=== PATIENT | male | born 1970 | race American Indian/Alaskan Native ===

== ENCOUNTER 2020-10-10 02:01 | Emergency (ER) | payer SELFPAY ==
[2020-10-10 02:32] LABS: Basophils # (Auto) 0.1 K/mm3 (0.0-0.1); Basophils % (Auto) 0.9 % (0.0-1.8); Eosinophils # (Auto) 0.1 K/mm3 (0.0-0.4); Hematocrit 40.7 % (35.5-45.6); Hemoglobin 13.7 gm/dl (11.8-15.2); Lymphocytes # (Auto) 2.5 K/mm3 (1.2-5.4); Lymphocytes % (Auto) 38.1 % (13.4-35.0); Mean Corpuscular HGB Conc 34 % (32-34); Mean Corpuscular Volume 84 fl (84-94); Monocytes # (Auto) 0.4 K/mm3 (0.0-0.8); Monocytes % (Auto) 6.9 % (0.0-7.3); Platelet Count 235 K/mm3 (140-440); Red Blood Count 4.86 M/mm3 (3.65-5.03); Red Cell Distribution Width 15.5 % (13.2-15.2)
--- NOTE | 2020-10-10 02:45 | XRay Report ---
CHEST 2 VIEWS INDICATION / CLINICAL INFORMATION: Dysrhythmia. COMPARISON: None available. FINDINGS: SUPPORT DEVICES: None. HEART / MEDIASTINUM: No significant abnormality. LUNGS / PLEURA: No significant pulmonary or pleural abnormality. No pneumothorax. ADDITIONAL FINDINGS: No significant additional findings. IMPRESSION: 1. No acute findings. Signer Name: Momo Duong MD Signed: 10/10/2020 2:41 AM Workstation Name: [id number]
--- NOTE | 2020-10-10 02:54 | Emergency Department Report ---
ED Palpitations HPI - General Chief Complaint: Arrhythmia/Palpitations Stated Complaint: RAPID HEARTBEAT/BACK PAIN Time Seen by Provider: 10/10/20 02:47 Source: patient Mode of arrival: Ambulatory Limitations: No Limitations - History of Present Illness Initial Comments: Patient is a 50-year-old male who presents emergency room with complaints of palpitations and heart fluttering. Patient states his symptoms started 1 hour prior to arrival. Patient denies chest pain. Patient denies shortness of breath. Patient states the symptoms are making him anxious. Patient states he has been working out today but has not had anything to eat today. Patient states he has had a few bottles of water. Patient denies fever and chills. Patient denies cough. Patient denies recent travel. Patient denies recent international travel. Patient denies exposure to the novel coronavirus. Patient denies sick contacts. Patient denies fever and chills. Patient denies cough. Patient denies diarrhea. Patient denies coming in contact with anybody with symptoms of the novel coronavirus. Complaint: rapid heart beat, palpitations -: Sudden - Related Data Home Medications Medication Instructions Recorded Confirmed Last Taken amLODIPine [Norvasc] 5 mg PO DAILY 10/10/20 10/10/20 Unknown Previous Rx's Medication Instructions Recorded Last Taken Type Potassium Chloride [K-Dur] 20 meq PO DAILY 30 Days #30 tab 10/10/20 Unknown Rx Allergies Allergy/AdvReac Type Severity Reaction Status Date / Time No Known Allergies Allergy Unverified 10/10/20 02:06 ED Review of Systems ROS: Stated complaint: RAPID HEARTBEAT/BACK PAIN Other details as noted in HPI Constitutional: denies: chills, fever Eyes: denies: eye pain, eye discharge, vision change ENT: denies: ear pain, throat pain Respiratory: denies: cough, shortness of breath, wheezing Cardiovascular: as per HPI, palpitations. denies: chest pain Endocrine: no symptoms reported Gastrointestinal: denies: abdominal pain, nausea, diarrhea Genitourinary: denies: urgency, dysuria Musculoskeletal: denies: back pain, joint swelling, arthralgia Skin: denies: rash, lesions Neurological: denies: headache, weakness, paresthesias Psychiatric: anxiety. denies: depression Hematological/Lymphatic: denies: easy bleeding, easy bruising ED Past Medical Hx - Past Medical History Previous Medical History?: Yes Hx Hypertension: Yes - Surgical History Past Surgical History?: No - Family History Family history: no significant - Social History Smoking Status: Never Smoker Substance Use Type: None - Medications Home Medications: Home Medications Medication Instructions Recorded Confirmed Last Taken Type Potassium Chloride [K-Dur] 20 meq PO DAILY 30 Days #30 tab 10/10/20 Unknown Rx amLODIPine [Norvasc] 5 mg PO DAILY 10/10/20 10/10/20 Unknown History ED Physical Exam - General Limitations: No Limitations General appearance: alert, in no apparent distress - Head Head exam: Present: atraumatic, normocephalic - Eye Eye exam: Present: normal appearance - ENT ENT exam: Present: mucous membranes moist - Neck Neck exam: Present: normal inspection - Respiratory Respiratory exam: Present: normal lung sounds bilaterally. Absent: respiratory distress - Cardiovascular Cardiovascular Exam: Present: regular rate, normal rhythm. Absent: systolic murmur, diastolic murmur, rubs, gallop - GI/Abdominal GI/Abdominal exam: Present: soft, normal bowel sounds - Rectal Rectal exam: Present: deferred - Extremities Exam Extremities exam: Present: normal inspection - Back Exam Back exam: Present: normal inspection - Neurological Exam Neurological exam: Present: alert, oriented X3 - Psychiatric Psychiatric exam: Present: normal affect, normal mood - Skin Skin exam: Present: warm, dry, intact, normal color. Absent: rash ED Course Vital Signs 10/10/20 10/10/20 10/10/20 02:05 03:09 03:12 Temperature 98.4 F Pulse Rate 94 H 79 Respiratory 18 11 L 17 Rate Blood Pressure 151/61 Blood Pressure 125/81 [Left] O2 Sat by Pulse 97 99 98 Oximetry - Reevaluation(s) Reevaluation #1: I discussed all results and clinical findings with patient. I discussed plan of care with patient. Patient agrees with plan of care. Patient is stable for discharge. Patient will be discharged home. Patient given discharge instructions. Patient voiced understanding of discharge instructions. 10/10/20 03:25 ED Medical Decision Making - Lab Data Result diagrams: 10/10/20 02:22 10/10/20 02:22 - EKG Data -: EKG Interpreted by Me EKG shows normal: sinus rhythm, axis, intervals, QRS complexes, ST-T waves Rate: normal - Radiology Data Radiology results: report reviewed, image reviewed interpreted by me: Chest x-ray: No pneumonia, no pneumothorax, no foreign body, no osseous findings, no acute findings CHEST 2 VIEWS INDICATION / CLINICAL INFORMATION: Dysrhythmia. COMPARISON: None available. FINDINGS: SUPPORT DEVICES: None. HEART / MEDIASTINUM: No significant abnormality. LUNGS / PLEURA: No significant pulmonary or pleural abnormality. No pneumothorax. ADDITIONAL FINDINGS: No significant additional findings. IMPRESSION: 1. No acute findings. - Medical Decision Making Patient is a 44-year-old male that presents emergency room with complaints of heart palpitations and heart fluttering x1 hour prior to arrival. Patient had poor p.o. intake and poor water intake and was working out the day of his symptoms started. Patient had labs done which were essentially unremarkable except for electrolyte imbalance so hyponatremia and hypokalemia. Patient instructed to increase water and eat regularly. Patient will be given a potassium supplement. Patient instructed take a multivitamin daily. Patient had a chest x-ray and EKG done. Patient's chest x-ray was negative for acute findings. Patient's EKG was negative for acute finding had a normal ST segment and showed a normal sinus rhythm. I personally reviewed the chest x-ray and the EKG. Patient is stable for discharge. Patient discharged home. Patient will refer to a zoo veterinarian for further evaluation and treatment. . - Differential Diagnosis Palpitations, electrolyte imbalance, dehydration, fluttering Critical care attestation.: If time is entered above; I have spent that time in minutes in the direct care of this critically ill patient, excluding procedure time. ED Disposition Clinical Impression: Heart palpitations, Hypokalemia, Dehydration Disposition: DC- TO HOME OR SELFCARE Is pt being admited?: No Does the pt Need Aspirin: No Condition: Stable Instructions: Hypokalemia, Rehydration, Adult, Palpitations, [id number], Potassium Content of Foods Additional Instructions: Patient to follow-up with primary care in 2 to 3 days. Patient to follow-up with zoo veterinarian in 2 to 3 days. Patient to rest. Patient to increase water. Patient to avoid strenuous exercise or heavy lifting until cleared by zoo veterinarian. Patient to eat a heart healthy diet. Patient to eat regularly. Patient to go to his primary care within 2 to 3 days to have a potassium checked. Patient to take a multivitamin daily. Patient to take meds as directed. Patient to return to the ER if condition worsens, changes or new symptoms arise. Prescriptions: Potassium Chloride [K-Dur] 20 meq PO DAILY 30 Days #30 tab Referrals: PRIMARY CARE, [Primary Care Provider] - 2-3 Days SHAWNEE GONZALES MD [Staff Physician] - 2-3 Days RHONDA ALDRIDGE MD [Staff Physician] - 2-3 Days Time of Disposition: 03:18
[2020-10-10 02:55] LABS: Alanine Aminotransferase 11 units/L (7-56); Albumin 4.2 g/dL (3.9-5); BUN/Creatinine Ratio 10; Blood Urea Nitrogen 10 mg/dL (9-20); Calcium 9.1 mg/dL (8.4-10.2); Hemolysis Index 3
[2020-10-10 03:13] VITALS: BP 125/81
--- NOTE | 2020-10-10 11:25 | Electrocardiograph Report ---
[facility] Test Date: 2020-10-10 Test Time: 02:12:04 Pat Name: JARETH SALINAS Department: Room: Gender: M Echo Vasc Tech: : 1970 Requested By: SHONDA SANTANA III Order Number: [id number] Reading MD: Brandin Canada Measurements Intervals [place] Rate: 85 P: 48 OR: 173 QRS: 10 QRSD: 92 T: 40 QT: 357 QTc: 425 Interpretive Statements Sinus rhythm No previous ECG available for comparison Electronically Signed On 10-10-2020 8:25:04 PDT by Brandin Canada
== END 2020-10-10 03:36 | disposition home or self-care (01) ==
LOC: ED 02:01
DX: R00.2 Palpitations (principal); E86.0 Dehydration; E87.6 Hypokalemia; Z79.899 Other long term (current) drug therapy
CPT/HCPCS: 36415; 71046; 80053; 84484; 85025; 85379; 93005; 99283

== ENCOUNTER 2020-12-14 22:08 | Emergency (ER) | payer SELFPAY ==
[2020-12-14 23:38] VITALS: BP 151/75
[2020-12-14] MEDS ORDERED: ACETAMINOPHEN 325 MG TAB PO ONE (23:42)
[2020-12-15] MEDS ORDERED: LIDOCAINE VISCOUS 2% 15 ML ORAL LIQD PO ONE (00:06)
[2020-12-15] MEDS ORDERED: IBUPROFEN 600 MG TAB PO ONE (00:06)
[2020-12-15] MEDS ORDERED: dexAMETHasone 20 MG/5 ML VIAL IM ONE (00:07)
--- NOTE | 2020-12-15 02:17 | Emergency Department Report ---
ED General Adult HPI - General Chief complaint: Fever Stated complaint: EAR/THROAT PAIN/FEVER/CHILLS Source: patient Mode of arrival: Ambulatory Limitations: No Limitations - History of Present Illness Initial comments: Patient is a 50-year-old -Maur[place] male with a history of hypertension who presents to the ED with acute onset persistent , severe sore throat with dysphagia, right ear pain, diffuse body aches and pains and intermittent fever and chills for the last 2 days, worse in the last 12 hours. Patient states that the pain is worse with any swallowing of liquids or solid foods. Patient states that no one else at home is had similar symptoms. Patient denies dizziness, syncope, chest pain, shortness of breath, cough, nasal and sinus congestion, change in vision, diarrhea, abdominal pain, nausea and vomiting. MD Complaint: Sore throat, dysphagia; right ear pain, chills, fever and body aches -: Sudden, days(s) (2) Location: mouth Radiation: non-radiation Severity scale (0 -10): 7 Quality: aching, sharp, constant Consistency: constant Improves with: none Worsens with: eating Associated Symptoms: denies other symptoms, diaphoresis, fever/chills, headaches, loss of appetite, malaise, other (Severe right ear pain). denies: confusion, chest pain, cough, nausea/vomiting, rash, seizure, shortness of br eath, syncope, weakness Treatments Prior to Arrival: none - Related Data Home Medications Medication Instructions Recorded Confirmed Last Taken amLODIPine [Norvasc] 5 mg PO DAILY 10/10/20 10/10/20 Unknown Previous Rx's Medication Instructions Recorded Last Taken Type Potassium Chloride [K-Dur] 20 meq PO DAILY 30 Days #30 tab 10/10/20 Unknown Rx Azithromycin [Zithromax Z-EDIS] 250 mg PO DAILY #6 tablet 12/15/20 Unknown Rx Ibuprofen [Motrin] 800 mg PO Q8HR PRN #30 tablet 12/15/20 Unknown Rx Lidocaine Viscous 2% 10 ml PO Q6H PRN #120 ml 12/15/20 Unknown Rx Allergies Allergy/AdvReac Type Severity Reaction Status Date / Time No Known Allergies Allergy Unverified 10/10/20 02:06 ED Review of Systems ROS: Stated complaint: EAR/THROAT PAIN/FEVER/CHILLS Other details as noted in HPI Constitutional: chills, fever, malaise, weakness Eyes: denies: eye pain, eye discharge, vision change ENT: ear pain (Right ear pain), throat pain (Sore throat with dysphagia). denies: congestion Respiratory: denies: cough, shortness of breath, wheezing Cardiovascular: denies: chest pain, palpitations Endocrine: no symptoms reported Gastrointestinal: denies: abdominal pain, nausea, vomiting, diarrhea Genitourinary: denies: urgency, dysuria Musculoskeletal: denies: back pain, joint swelling, arthralgia Skin: denies: rash, lesions Neurological: denies: headache, weakness, paresthesias Psychiatric: denies: anxiety, depression Hematological/Lymphatic: denies: easy bleeding, easy bruising ED Past Medical Hx - Past Medical History Previous Medical History?: Yes Hx Hypertension: Yes - Surgical History Past Surgical History?: No - Social History Smoking Status: Never Smoker Substance Use Type: None - Medications Home Medications: Home Medications Medication Instructions Recorded Confirmed Last Taken Type Potassium Chloride [K-Dur] 20 meq PO DAILY 30 Days #30 tab 10/10/20 Unknown Rx amLODIPine [Norvasc] 5 mg PO DAILY 10/10/20 10/10/20 Unknown History Azithromycin [Zithromax Z-EDIS] 250 mg PO DAILY #6 tablet 12/15/20 Unknown Rx Ibuprofen [Motrin] 800 mg PO Q8HR PRN #30 tablet 12/15/20 Unknown Rx Lidocaine Viscous 2% 10 ml PO Q6H PRN #120 ml 12/15/20 Unknown Rx ED Physical Exam - General Limitations: No Limitations General appearance: alert, in no apparent distress, other (Febrile) - Head Head exam: Present: atraumatic, normocephalic, normal inspection - Eye Eye exam: Present: normal appearance, PERRL, EOMI Pupils: Present: normal accommodation - ENT ENT exam: Present: mucous membranes moist, TM's normal bilaterally, normal external ear exam, other (Grossly erythematous oropharynx and tonsils, mild white exudates; uvula midline and no sign of peritonsillar abscess) - Neck Neck exam: Present: normal inspection, full ROM, lymphadenopathy (Palpable anterior cervical lymphadenopathy) - Respiratory Respiratory exam: Present: normal lung sounds bilaterally. Absent: respiratory distress, wheezes, rales, chest wall tenderness, accessory muscle use, decreased breath sounds, prolonged expiratory - Cardiovascular Cardiovascular Exam: Present: regular rate, normal rhythm, normal heart sounds. Absent: systolic murmur, diastolic murmur, rubs, gallop - GI/Abdominal GI/Abdominal exam: Present: soft, normal bowel sounds. Absent: tenderness, guarding, rebound, hyperactive bowel sounds - Extremities Exam Extremities exam: Present: normal inspection, full ROM, normal capillary refill - Back Exam Back exam: Present: normal inspection, full ROM. Absent: tenderness, CVA tenderness (R), CVA tenderness (L), muscle spasm, paraspinal tenderness - Neurological Exam Neurological exam: Present: alert, oriented X3, CN II-XII intact, normal gait, reflexes normal - Psychiatric Psychiatric exam: Present: normal affect, normal mood - Skin Skin exam: Present: warm, dry, intact, normal color. Absent: rash ED Course Vital Signs 12/14/20 12/15/20 12/15/20 23:36 01:01 02:05 Temperature 102.9 F H 99.0 F Pulse Rate 90 85 Respiratory 18 20 20 Rate Blood Pressure 151/75 O2 Sat by Pulse 97 98 Oximetry ED Medical Decision Making - Medical Decision Making This is a 50-year-old -[place]aur[place] male with a history of hypertension who presents to the ED with acute onset persistent , severe sore throat with dysphagia, diffuse body aches and pains and intermittent fever and chills for the last 2 days, worse in the last 12 hours. Patient states that the pain is worse with any swallowing of liquids or solid foods. Patient states that no one else at home is had similar symptoms. In the ED, patient is alert and oriented x3 and is not in distress but febrile in triage. Patient was treated for fever and pain in the ED and observed. On reevaluation, patient fever resolved, patient's pain also resolved with medications. Based on patient's history and physical exam findings, the patient symptoms are likely due to bacterial pharyngitis or tonsillitis suspected to be streptococcal pharyngitis and tonsillitis. Patient was therefore discharged home on pain medications and antibiotics and was advised to drink plenty of fluids and follow-up with the primary care physician in 5 to 7 days for reevaluation. Patient was advised return to the ED immediately if symptoms get worse. - Differential Diagnosis Streptococcal pharyngitis; bacterial tonsillitis; viral pharyngitis Critical care attestation.: If time is entered above; I have spent that time in minutes in the direct care of this critically ill patient, excluding procedure time. ED Disposition Clinical Impression: Acute bacterial pharyngitis, Acute bacterial tonsillitis, Fever and chills Disposition: TO HOME OR SELFCARE Is pt being admited?: No Does the pt Need Aspirin: No Condition: Stable Instructions: Antibiotic Medicine, Adult, [id number], Tonsillitis, Eqon-be-Uwes, Pharyngitis, [id number] Additional Instructions: Your symptoms are likely due to bacterial pharyngitis or tonsillitis based on the physical exam and history. Therefore take medication with food, drink plenty of fluids and follow-up with your primary care physician in 5 to 7 days for reevaluation. Return to the ED immediately if symptoms get worse. Prescriptions: Lidocaine Viscous 2% 10 ml PO Q6H PRN #120 ml PRN Reason: Sore Throat Ibuprofen [Motrin] 800 mg PO Q8HR PRN #30 tablet PRN Reason: Pain , Severe (7-10) Azithromycin [Zithromax Z-EDIS] 250 mg PO DAILY #6 tablet Referrals: [facility] [Provider Group] - 7-10 days Forms: Work/School Release Form(ED) Time of Disposition: 02:07 Print Language: ARABIC
== END 2020-12-15 02:35 | disposition home or self-care (01) ==
LOC: ED 22:08
DX: J03.80 Acute tonsillitis due to other specified organisms (principal); B96.89 Other specified bacterial agents as the cause of diseases classified elsewhere; I10 Essential (primary) hypertension; Z79.899 Other long term (current) drug therapy
CPT/HCPCS: 96372; 99282; J1100

== ENCOUNTER 2021-03-14 09:54 | Emergency (ER) | payer SELFPAY ==
[2021-03-14 10:12] VITALS: BP 161/98
== END 2021-03-14 10:15 | disposition left against medical advice (07) ==
LOC: ED 09:54
DX: I10 Essential (primary) hypertension (principal); Z53.21 Procedure and treatment not carried out due to patient leaving prior to being seen by health care provider

== ENCOUNTER 2021-03-15 09:31 | Emergency (ER) | payer SELFPAY ==
[2021-03-15 09:52] VITALS: BP 130/91
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
== END 2021-03-15 10:38 | disposition home or self-care (01) ==
LOC: ED 09:31
DX: I10 Essential (primary) hypertension (principal); Z79.899 Other long term (current) drug therapy
CPT/HCPCS: 99281

== ENCOUNTER 2021-08-03 03:58 | Emergency (ER) | payer SELFPAY ==
--- NOTE | 2021-08-03 06:25 | Emergency Department Report ---
ED Extremity Problem HPI - General Chief complaint: Back Pain/Injury Stated complaint: LEFT ARM AND BACK PAIN Time Seen by Provider: 08/03/21 06:10 Source: patient Mode of arrival: Ambulatory Limitations: No Limitations - History of Present Illness Initial comments: 51-year-old -[place]ir[place] male with a past medical history of hypertension presents to the ER today with complaints of pain to his left shoulder. Patient states that the pain started about 2 hours ago. He states that he was sitting down on the couch relaxing, when the pain started. He denies any particular trauma or strenuous activity but he states that he was leaning on that arm prior to the onset of the pain. He denies any associated chest pain, shortness of breath, abdominal pain, back pain, shortness of breath, nausea, vomiting, lower extremity swelling, calf pain or any additional symptoms. Patient was concerned that the pain could be related to his heart and so came to the ER to get checked. He denies any prior history of coronary artery disease, lung disease, history of PE or DVT. He states that his mom had a PE in the past, but otherwise no family history of heart disease. He does not smoke. He denies any illicit drug use nor alcohol abuse. MD Complaint: joint paint -: hour(s) (2) Severity scale (0 -10): 6 - Related Data Home Medications Medication Instructions Recorded Confirmed Last Taken amLODIPine [Norvasc] 5 mg PO DAILY 10/10/20 10/10/20 Unknown Previous Rx's Medication Instructions Recorded Last Taken Type Potassium Chloride [K-Dur] 20 meq PO DAILY 30 Days #30 tab 10/10/20 Unknown Rx Azithromycin [Zithromax Z-EDIS] 250 mg PO DAILY #6 tablet 12/15/20 Unknown Rx Ibuprofen [Motrin] 800 mg PO Q8HR PRN #30 tablet 12/15/20 Unknown Rx Lidocaine Viscous 2% 10 ml PO Q6H PRN #120 ml 12/15/20 Unknown Rx Allergies Allergy/AdvReac Type Severity Reaction Status Date / Time No Known Allergies Allergy Unverified 10/10/20 02:06 ED Review of Systems ROS: Stated complaint: LEFT ARM AND BACK PAIN Other details as noted in HPI ED Past Medical Hx - Past Medical History Hx Hypertension: Yes - Social History Smoking Status: Never Smoker Substance Use Type: None - Medications Home Medications: Home Medications Medication Instructions Recorded Confirmed Last Taken Type Potassium Chloride [K-Dur] 20 meq PO DAILY 30 Days #30 tab 10/10/20 Unknown Rx amLODIPine [Norvasc] 5 mg PO DAILY 10/10/20 10/10/20 Unknown History Azithromycin [Zithromax Z-EDIS] 250 mg PO DAILY #6 tablet 12/15/20 Unknown Rx Ibuprofen [Motrin] 800 mg PO Q8HR PRN #30 tablet 12/15/20 Unknown Rx Lidocaine Viscous 2% 10 ml PO Q6H PRN #120 ml 12/15/20 Unknown Rx ED Physical Exam - General Limitations: No Limitations ED Course Vital Signs 08/03/21 08/03/21 04:00 06:42 Temperature 98.9 F 98.7 F Pulse Rate 80 71 Respiratory 18 17 Rate Blood Pressure 157/101 104/53 [Right] O2 Sat by Pulse 96 96 Oximetry ED Medical Decision Making - EKG Data EKG shows normal: sinus rhythm Rate: normal (70) - EKG Data Interpretation: normal EKG - Medical Decision Making 51-year-old -[place] male with a past medical history of hypertension presents to the ER today with complaints of pain to his left shoulder. Patient states that the pain started about 2 hours ago. He states that he was sitting down on the couch relaxing, when the pain started. He denies any particular trauma or strenuous activity but he states that he was leaning on that arm prior to the onset of the pain. He denies any associated chest pain, shortness of breath, abdominal pain, back pain, shortness of breath, nausea, vomiting, lower extremity swelling, calf pain or any additional symptoms. Patient was concerned that the pain could be related to his heart and so came to the ER to get checked. He denies any prior history of coronary artery disease, lung disease, history of PE or DVT. He states that his mom had a PE in the past, but otherwise no family history of heart disease. He does not smoke. He denies any illicit drug use nor alcohol abuse. Patient EKG is completely normal. Patient main area of pain is in his left shoulder he has reproducible tenderness to the proximal aspect of the left shoulder on exam. He also has some pain with range of motion. Left upper extremity neurovascular intact. he denies any chest pain, shortness of breath, nausea, vomiting or abdominal pain. Patient is nontoxic or ill-appearing. He is not any significant distress. He is neurologically intact with a normal gait. Suspect his pain is mostly musculoskeletal in nature. There is no indication for x-ray since he has suffered no trauma. At this time I do not suspect that his pain is related to unstable angina, PE, DVT, TIA/CVA, or any other acute emergent conditions warranting any additional testing at this time. Reassured patient that this is not likely related to her IL or unstable angina. Discussed suspected diagnosis with patient. He can take Tylenol and ibuprofen for pain. His blood pressure was noted to be elevated, but he had not taken his morning blood pressure medications. Patient expressed understanding of all instructions and agree with plan. Patient stable at time of discharge Critical care attestation.: If time is entered above; I have spent that time in minutes in the direct care of this critically ill patient, excluding procedure time. ED Disposition Clinical Impression: Left shoulder pain Disposition: 01 HOME / SELF CARE / HOMELESS Is pt being admited?: No Does the pt Need Aspirin: No Condition: Stable Instructions: Shoulder Pain, [id number] Additional Instructions: You can take Tylenol and or ibuprofen as needed to help with the pain. If your shoulder pain persist I recommend follow-up with edi specialist. If you do not have an edi specialist will be provided to you on your discharge instructions. Take your blood pressure medication as scheduled this morning when you get home. Return to the ER if your symptoms worsens or changes in any way Referrals: PRIMARY CAREMD [Primary Care Provider] - 3-5 Days Forms: Work/School Release Form(ED) Time of Disposition: 06:24
[2021-08-03 06:43] VITALS: BP 104/53
--- NOTE | 2021-08-05 09:20 | Electrocardiograph Report ---
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
== END 2021-08-03 06:41 | disposition home or self-care (01) ==
LOC: ED 03:58
DX: M25.512 Pain in left shoulder (principal); I10 Essential (primary) hypertension
CPT/HCPCS: 93005; 99282

== ENCOUNTER 2021-08-19 10:44 | Emergency (ER) | payer SELFPAY ==
[2021-08-19] MEDS ORDERED: cloNIDine 0.2 MG TAB PO ONE (11:30)
--- NOTE | 2021-08-19 11:58 | Cat Scan Report ---
CT head/brain wo con INDICATION / CLINICAL INFORMATION: 51 years Male; Hypertension, headache. TECHNIQUE: Routine CT head without contrast. All CT scans at this location are performed using CT dos e reduction for ALARA by means of automated exposure control. COMPARISON: None. FINDINGS: BRAIN / INTRACRANIAL CONTENTS: No acute hemorrhage, mass effect, midline shift, hydrocephalus, or acu te, large territorial infarct. No signs of significant atrophy or chronic infarct. No significant whi te matter abnormality seen. CRANIOCERVICAL JUNCTION: No significant abnormality. ORBITS: No significant abnormality of visualized orbits. SINUSES / MASTOIDS: Mucous retention cyst/polyp is seen in the right maxillary antrum. Partial opacif ication of the mastoid seen. No coalescence of air cells appreciated. ADDITIONAL FINDINGS: None. IMPRESSION: 1. No focal mass, hemorrhage, hydrocephalus, or acute, large territorial infarct. Signer Name: Marcell Coto MD, III Signed: 08/19/2021 11:53 AM Workstation Name: [id number]
--- NOTE | 2021-08-19 12:10 | Emergency Department Report ---
HPI - General Chief Complaint: High BP Time Seen by Provider: 08/19/21 11:26 - HPI HPI: Room 30 Patient is a 51-year-old male present with a chief complaint of headache. The patient states he went to sleep last night in his usual [facility] when he awakened this morning he had a slight occipital headache. The patient states over the course of the day the pain worsened. Patient denies any recent trauma. Patient denies history of fever. Patient states he has been compliant with his blood pressure medication which includes lisinopril and amlodipine ED Past Medical Hx - Past Medical History Hx Hypertension: Yes - Surgical History Past Surgical History?: No - Family History Family history: no significant - Social History Smoking Status: Never Smoker Substance Use Type: None (Denies illicit drug use) - Medications Home Medications: Home Medications Medication Instructions Recorded Confirmed Last Taken Type Potassium Chloride [K-Dur] 20 meq PO DAILY 30 Days #30 tab 10/10/20 Unknown Rx amLODIPine [Norvasc] 5 mg PO DAILY 10/10/20 10/10/20 Unknown History Azithromycin [Zithromax Z-EDIS] 250 mg PO DAILY #6 tablet 12/15/20 Unknown Rx Ibuprofen [Motrin] 800 mg PO Q8HR PRN #30 tablet 12/15/20 Unknown Rx Lidocaine Viscous 2% 10 ml PO Q6H PRN #120 ml 12/15/20 Unknown Rx ED Review of Systems ROS: Stated complaint: BP 180/110,IN PAIN Other details as noted in HPI Constitutional: no symptoms reported Eyes: denies: eye pain ENT: ear pain. denies: throat pain Respiratory: no symptoms reported Cardiovascular: denies: chest pain Endocrine: no symptoms reported Gastrointestinal: denies: abdominal pain Musculoskeletal: arthralgia Neurological: headache Physical Exam - Physical Exam Vital Signs: Vital Signs 08/19/21 10:48 Temperature 98.9 F Pulse Rate 71 Respiratory 20 Rate Blood Pressure 185/104 [Left] O2 Sat by Pulse 100 Oximetry Vital Signs 08/19/21 08/19/21 10:48 13:40 Temperature 98.9 F 98.1 F Pulse Rate 71 73 Respiratory 20 16 Rate Blood Pressure 185/104 123/78 [Left] O2 Sat by Pulse 100 99 Oximetry Physical Exam: GENERAL: The patient is well-developed well-nourished male sitting in chair not appearing to be in acute distress. [] HEENT: Normocephalic. Atraumatic. Extraocular motions are intact. Right TM obscured by cerumen NECK: Supple. Trachea midline CHEST/LUNGS: Clear to auscultation. There is no respiratory distress noted. HEART/CARDIOVASCULAR: Regular. There is no tachycardia. There is no gallop rub or murmur. ABDOMEN: Abdomen is soft, nontender. Patient has normal bowel sounds. There is no abdominal distention. SKIN: There is no rash. There is no edema. There is no diaphoresis. NEURO: The patient is awake, alert, and oriented. The patient is cooperative. The patient has no focal neurologic deficits. The patient has normal speech. Cranial nerves II through XII grossly intact. GCS 15. Patient able to hold either upper extremity at 45 degree angle for 10-second count without drift. Patient able to hold either lower extremity at 30 degree angle for 5-second count without drift. 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 NIHSS=0 MUSCULOSKELETAL:There is no evidence of acute injury. ED Course Vital Signs 08/19/21 10:48 Temperature 98.9 F Pulse Rate 71 Respiratory 20 Rate Blood Pressure 185/104 [Left] O2 Sat by Pulse 100 Oximetry ED Medical Decision Making - Radiology Data Radiology results: report reviewed (CT head), image reviewed (CT head) Patient: JARETH SALINAS MR#: [id number] : 1970 Acct:[id number] Age/Sex: 51 / M ADM Date: 08/19/21 Loc: ED Attending Dr: Ordering Physician: MALOU NINA MD Date of Service: 08/19/21 Procedure(s): CT head/brain wo con Accession Number(s): [id number] cc: MALOU NINA MD CT head/brain wo con INDICATION / CLINICAL INFORMATION: 51 years Male; Hypertension, hea dache. TECHNIQUE: Routine CT head without contrast. All CT scans at this location are performed using CT dose reduction for ALARA by means of automated exposure control. COMPARISON: None. FINDINGS: BRAIN / INTRACRANIAL CONTENTS: No acute hemorrhage, mass effect, midline shift, hydrocephalus, or acute, large territorial infarct. No signs of significant atrophy or chronic infarct. No significant white matter abnormality seen. CRANIOCERVICAL JUNCTION: No significant abnormality. ORBITS: No significant abnormality of visualized orbits. SINUSES / MASTOIDS: Mucous retention cyst/polyp is seen in the right maxillary antrum. Partial opacification of the mastoid seen. No coalescence of air cells appreciated. ADDITIONAL FINDINGS: None. IMPRESSION: 1. No focal mass, hemorrhage, hydrocephalus, or acute, large territorial infarct. Signer Name: Marcell Coto MD, III Signed: 08/19/2021 11:53 AM Workstation Name: [id number] Transcribed By: HR Dictated By: Marcell Coto MD Electronically Authent icated By: Marcell Coto MD Signed Date/Time: 08/19/21 1153 DD/ 1151 TD/TT: Print Cancel - Differential Diagnosis Hypertensive urgency, mastoiditis Critical care attestation.: If time is entered above; I have spent that time in minutes in the direct care of this critically ill patient, excluding procedure time. ED Disposition Clinical Impression: Uncontrolled hypertension, Headache Disposition: HOME / SELF CARE / HOMELESS Is pt being admited?: No Does the pt Need Aspirin: No Condition: Stable Instructions: Hypertension (ED), Hypertension, Adult, [id number] Additional Instructions: Return to the emergency department should you develop worsening symptoms, inability to tolerate food or liquids, high fever or any other concerns Referrals: ALOK MANN MD [Staff Physician] - 3-5 Days (Dr. Winkler is an city alderman (ear nose throat doctor). Please follow-up with him for fu rther evaluation of your ear pain) MARIYA GUERRERO MD [Staff Physician] - 3-5 Days (Dr. Guerrero is a primary physician. Please follow-up with him to be established as a patient) Time of Disposition: 13:50
[2021-08-19 13:45] VITALS: BP 123/78
== END 2021-08-19 13:55 | disposition home or self-care (01) ==
LOC: ED 10:44
DX: I10 Essential (primary) hypertension (principal); R51.9 Headache, unspecified
CPT/HCPCS: 70450; 99283

== ENCOUNTER 2021-09-12 09:16 | Emergency (ER) | payer SELFPAY ==
--- NOTE | 2021-09-12 09:43 | Emergency Department Report ---
ED General Adult HPI - General Chief complaint: Upper Respiratory Infection Stated complaint: SINUS INFECTION DIZZY Time Seen by Provider: 09/12/21 09:30 Source: patient Mode of arrival: Ambulatory Limitations: No Limitations - History of Present Illness Initial comments: Patient presents with a week to 10-day history of sinus congestion and pain. He states that the symptoms worsened over the last 2 to 3 days. There has been pressure in the sinus area and frontal headache. He has had no diplopia. He has not really had any cough or ear pain. He states that he just feels congested and has lots of pressure. He is used [id number] medication without symptomatic improvement. Patient is not sure if he has developed some sort of sinus infection. He has had symptoms like this before. Patient denies recent travel. He has had no documented fever, but he states that he has felt warm. - Related Data Home Medications Medication Instructions Recorded Confirmed Last Taken amLODIPine [Norvasc] 5 mg PO DAILY 10/10/20 10/10/20 Unknown Previous Rx's Medication Instructions Recorded Last Taken Type Potassium Chloride [K-Dur] 20 meq PO DAILY 30 Days #30 tab 10/10/20 Unknown Rx Ibuprofen [Motrin] 800 mg PO Q8HR PRN #30 tablet 12/15/20 Unknown Rx Lidocaine Viscous 2% 10 ml PO Q6H PRN #120 ml 12/15/20 Unknown Rx traMADoL [Ultram] 50 mg PO Q6HR PRN #10 tablet 08/19/21 Unknown Rx Acetaminophen/Chlorpheniramine 1 each PO QID PRN #30 tab 09/12/21 Unknown Rx [Coricidin Hbp Cold & Flu Tab] Azithromycin [Zithromax Z-EDIS] 250 mg PO DAILY #6 tablet 09/12/21 Unknown Rx Fluticasone Furoate [Flonase 1 spray NS BID #1 unit 09/12/21 Unknown Rx Sensimist] Allergies Allergy/AdvReac Type Severity Reaction Status Date / Time No Known Allergies Allergy Verified 09/12/21 09:28 ED Review of Systems ROS: Stated complaint: SINUS INFECTION DIZZY Other details as noted in HPI Comment: All other systems reviewed and negative Constitutional: see HPI Eyes: denies: vision change ENT: as per HPI Respiratory: denies: cough Cardiovascular: denies: chest pain Endocrine: denies: unexplained weight loss Gastrointestinal: denies: vomiting Genitourinary: denies: dysuria Musculoskeletal: denies: back pain Skin: denies: rash Neurological: headache (Frontal) Hematological/Lymphatic: denies: easy bruising ED Past Medical Hx - Past Medical History Previous Medical History?: Yes Hx Hypertension: Yes - Family History Family history: hypertension - Social History Smoking Status: Never Smoker Substance Use Type: None (Denies illicit drug use) - Medications Home Medications: Home Medications Medication Instructions Recorded Confirmed Last Taken Type Potassium Chloride [K-Dur] 20 meq PO DAILY 30 Days #30 tab 10/10/20 Unknown Rx amLODIPine [Norvasc] 5 mg PO DAILY 10/10/20 10/10/20 Unknown History Ibuprofen [Motrin] 800 mg PO Q8HR PRN #30 tablet 12/15/20 Unknown Rx Lidocaine Viscous 2% 10 ml PO Q6H PRN #120 ml 12/15/20 Unknown Rx traMADoL [Ultram] 50 mg PO Q6HR PRN #10 tablet 08/19/21 Unknown Rx Acetaminophen/Chlorpheniramine 1 each PO QID PRN #30 tab 09/12/21 Unknown Rx [Coricidin Hbp Cold & Flu Tab] Azithromycin [Zithromax Z-EDIS] 250 mg PO DAILY #6 tablet 09/12/21 Unknown Rx Fluticasone Furoate [Flonase 1 spray NS BID #1 unit 09/12/21 Unknown Rx Sensimist] ED Physical Exam - General Limitations: No Limitations, Other (Pulse ox noted and normal at 97% on my exam) General appearance: alert, in no apparent distress - Head Head exam: Present: atraumatic, normocephalic - Eye Eye exam: Present: normal appearance, PERRL, EOMI. Absent: scleral icterus - ENT ENT exam: Present: normal orophraynx, normal external ear exam, other (Patient has sinus tenderness bilaterally with percussion. There is no facial edema.) - Neck Neck exam: Present: normal inspection. Absent: meningismus - Respiratory Respiratory exam: Present: normal lung sounds bilaterally. Absent: respiratory distress - Cardiovascular Cardiovascular Exam: Present: regular rate, normal rhythm - GI/Abdominal GI/Abdominal exam: Present: soft - Extremities Exam Extremities exam: Present: normal capillary refill - Back Exam Back exam: Absent: CVA tenderness (R), CVA tenderness (L) - Neurological Exam Neurological exam: Present: alert, oriented X3, CN II-XII intact, normal gait - Psychiatric Psychiatric exam: Present: normal affect, normal mood - Skin Skin exam: Present: warm, dry ED Course - Reevaluation(s) Reevaluation #1: 09/12/21 13:15 Patient was discharged ED Medical Decision Making - Medical Decision Making Patient presented with sinus symptoms that have been prolonged. His symptoms had worsened over the last 48 hours and he reports subjective fevers. Based on this, I believe patient likely had a viral upper respiratory infection that is now progressed to a bacterial sinusitis. He was treated empirically with antibiotics. He was also given symptomatic measures. He does not appear to be septic or toxic. Critical Care Time: No Critical care attestation.: If time is entered above; I have spent that time in minutes in the direct care of this critically ill patient, excluding procedure time. ED Disposition Clinical Impression: Acute bacterial sinusitis Disposition: HOME / SELF CARE / HOMELESS Is pt being admited?: No Condition: Stable Instructions: Sinusitis, Adult, Antibiotic Medicine, Adult Additional Instructions: Push fluids. Use Tylenol for fever. Follow-up with your regular doctor for recheck. Continue your blood pressure medication. Prescriptions: Acetaminophen/Chlorpheniramine [Coricidin Hbp Cold & Flu Tab] 1 each PO QID PRN #30 tab PRN Reason: Congestion Fluticasone Furoate [Flonase Sensimist] 1 spray NS BID #1 unit Azithromycin [Zithromax Z-EDIS] 250 mg PO DAILY #6 tablet Referrals: PRIMARY CARE, [Primary Care Provider] - 3-5 Days
== END 2021-09-12 10:26 | disposition home or self-care (01) ==
LOC: ED 09:16
DX: J01.90 Acute sinusitis, unspecified (principal); B96.89 Other specified bacterial agents as the cause of diseases classified elsewhere; I10 Essential (primary) hypertension; Z79.899 Other long term (current) drug therapy
CPT/HCPCS: 99282

== ENCOUNTER 2021-11-04 13:08 | Emergency (ER) | payer SELFPAY ==
[2021-11-04 13:13] VITALS: BP 144/89
== END 2021-11-04 15:26 | disposition left against medical advice (07) ==
LOC: ED 13:08
DX: R42 Dizziness and giddiness (principal); R11.0 Nausea; Z53.21 Procedure and treatment not carried out due to patient leaving prior to being seen by health care provider

== ENCOUNTER 2021-11-06 10:08 | Emergency (ER) | payer SELFPAY ==
[2021-11-06 10:43] VITALS: BP 134/94
--- NOTE | 2021-11-06 12:41 | Emergency Department Report ---
ED Back Pain/Injury HPI - General Chief Complaint: Back Pain/Injury Stated Complaint: DIZZY/BACK PAIN Source: patient Limitations: No Limitations - History of Present Illness Initial Comments: Patient is a 51-year-old -[place] male with a history of morbid obesity, chronic low back pain and neck pain and hypertension who presents to the ED with acute exacerbation of his chronic low and mid posterior thoracic pain after starting a workout routine for the last 3 days. Patient states that the pain has been constant and persistent, and is worse with movement or any physical activity. Patient denies dizziness, syncope, fall, traumatic injury, numbness and tingling or weakness of upper and lower extremities bilaterally. MD Complaint: back pain (Mid posterior thoracic and low back pain) -: Sudden, days(s) (3) Similar Symptoms Previously: Yes (Chronic low and mid posterior thoracic pain) Place: home Radiation: none Severity: severe Severity scale (0 -10): 7 Quality: sharp, aching Consistency: constant Improves With: none Worsens With: movement, walking, other (Physical activity) Context: while lifting, turning/twisting Associated Symptoms: denies other symptoms. denies: confusion, weakness, chest pain, numbness, difficulty walking, cough, difficulty urinating, diaphoresis, incontinence, fever/chills, constipation, abdominal pain, loss of appetite, malaise, nausea/vomiting, rash, seizure, shortness of breath, syncope, other - Related Data Home Medications Medication Instructions Recorded Confirmed Last Taken amLODIPine [Norvasc] 5 mg PO DAILY 10/10/20 10/10/20 Unknown Previous Rx's Medication Instructions Recorded Last Taken Type Potassium Chloride [K-Dur] 20 meq PO DAILY 30 Days #30 tab 10/10/20 Unknown Rx Ibuprofen [Motrin] 800 mg PO Q8HR PRN #30 tablet 12/15/20 Unknown Rx Lidocaine Viscous 2% 10 ml PO Q6H PRN #120 ml 12/15/20 Unknown Rx traMADoL [Ultram] 50 mg PO Q6HR PRN #10 tablet 08/19/21 Unknown Rx Acetaminophen/Chlorpheniramine 1 each PO QID PRN #30 tab 09/12/21 Unknown Rx [Coricidin Hbp Cold & Flu Tab] Azithromycin [Zithromax Z-EDIS] 250 mg PO DAILY #6 tablet 09/12/21 Unknown Rx Fluticasone Furoate [Flonase 1 spray NS BID #1 unit 09/12/21 Unknown Rx Sensimist] Naproxen 500 mg PO Q12H PRN #30 tab 11/06/21 Unknown Rx methOCARBAMOL [Robaxin TAB] 750 mg PO Q12H PRN #24 tab 11/06/21 Unknown Rx Allergies Allergy/AdvReac Type Severity Reaction Status Date / Time No Known Allergies Allergy Verified 11/04/21 13:13 ED Review of Systems ROS: Stated complaint: DIZZY/BACK PAIN Other details as noted in HPI Constitutional: denies: chills, fever Eyes: denies: eye pain, eye discharge, vision change ENT: denies: ear pain, throat pain Respiratory: denies: cough, shortness of breath, wheezing Cardiovascular: denies: chest pain, palpitations Endocrine: no symptoms reported Gastrointestinal: denies: abdominal pain, nausea, vomiting, diarrhea Genitourinary: denies: urgency, dysuria Musculoskeletal: back pain (Low and mid posterior thoracic pain), arthralgia. denies: joint swelling Skin: denies: rash, lesions Neurological: denies: headache, weakness, paresthesias Psychiatric: denies: anxiety, depression Hematological/Lymphatic: denies: easy bleeding, easy bruising ED Past Medical Hx - Past Medical History Hx Hypertension: Yes Additional medical history: Chronic low back pain; chronic neck pain - Surgical History Past Surgical History?: No - Social History Smoking Status: Never Smoker Substance Use Type: Marijuana - Medications Home Medications: Home Medications Medication Instructions Recorded Confirmed Last Taken Type Potassium Chloride [K-Dur] 20 meq PO DAILY 30 Days #30 tab 10/10/20 Unknown Rx amLODIPine [Norvasc] 5 mg PO DAILY 10/10/20 10/10/20 Unknown History Ibuprofen [Motrin] 800 mg PO Q8HR PRN #30 tablet 12/15/20 Unknown Rx Lidocaine Viscous 2% 10 ml PO Q6H PRN #120 ml 12/15/20 Unknown Rx traMADoL [Ultram] 50 mg PO Q6HR PRN #10 tablet 08/19/21 Unknown Rx Acetaminophen/Chlorpheniramine 1 each PO QID PRN #30 tab 09/12/21 Unknown Rx [Coricidin Hbp Cold & Flu Tab] Azithromycin [Zithromax Z-EDIS] 250 mg PO DAILY #6 tablet 09/12/21 Unknown Rx Fluticasone Furoate [Flonase 1 spray NS BID #1 unit 09/12/21 Unknown Rx Sensimist] Naproxen 500 mg PO Q12H PRN #30 tab 11/06/21 Unknown Rx methOCARBAMOL [Robaxin TAB] 750 mg PO Q12H PRN #24 tab 11/06/21 Unknown Rx ED Physical Exam - General Limitations: No Limitations General appearance: alert, in no apparent distress - Head Head exam: Present: atraumatic, normocephalic, normal inspection - Eye Eye exam: Present: normal appearance, PERRL, EOMI Pupils: Present: normal accommodation - ENT ENT exam: Present: normal exam, normal orophraynx, mucous membranes moist, TM's normal bilaterally, normal external ear exam - Neck Neck exam: Present: normal inspection, full ROM. Absent: tenderness - Respiratory Respiratory exam: Present: normal lung sounds bilaterally. Absent: respiratory distress, wheezes, rhonchi, chest wall tenderness, accessory muscle use, decreased breath sounds, prolonged expiratory - Cardiovascular Cardiovascular Exam: Present: regular rate, normal rhythm, normal heart sounds. Absent: systolic murmur, diastolic murmur, rubs, gallop - GI/Abdominal GI/Abdominal exam: Present: soft, normal bowel sounds. Absent: tenderness, guarding, rigid, hyperactive bowel sounds, hypoactive bowel sounds, organomegaly, mass - Extremities Exam Extremities exam: Present: normal inspection, full ROM, normal capillary refill. Absent: tenderness, pedal edema, joint swelling, calf tenderness - Back Exam Back exam: Present: normal inspection, full ROM, tenderness (Palpable lumbosacral and mid posterior thoracic paraspinal musculoskeletal tenderness), muscle spasm, paraspinal tenderness. Absent: CVA tenderness (R), CVA tenderness (L), vertebral tenderness - Neurological Exam Neurological exam: Present: alert, oriented X3, CN II-XII intact, normal gait, reflexes normal - Psychiatric Psychiatric exam: Present: normal affect, normal mood - Skin Skin exam: Present: warm, dry, intact, normal color. Absent: rash ED Course Vital Signs 11/06/21 10:38 Temperature 98.6 F Pulse Rate 65 Respiratory 18 Rate Blood Pressure 134/94 O2 Sat by Pulse 99 Oximetry ED Medical Decision Making - Medical Decision Making This is a 51-year-old -[place] male with a history of morbid obesity, chronic low back pain and neck pain and hypertension who presents to the ED with acute exacerbation of his chronic low and mid posterior thoracic pain after starting a workout routine for the last 3 days. Patient states that the pain has been constant and persistent, and is worse with movement or any physical activity. In the ED, patient is alert and oriented x3 and is not in any distress. Therefore based on the history and physical exam findings, the pat ient symptoms are due to muscle strain and muscle spasm following onset of strenuous physical activity which he was not accustomed to. Patient was therefore discharged home on pain medications and muscle relaxants and advised to follow-up with his primary care physician as needed for further evaluation. Patient was advised return to the ED immediately if symptoms get worse. - Differential Diagnosis Muscle strain; muscle spasm; musculoskeletal pain Critical care attestation.: If time is entered above; I have spent that time in minutes in the direct care of this critically ill patient, excluding procedure time. ED Disposition Clinical Impression: Musculoskeletal back pain, Spasm of thoracic back muscle, Strain of muscle, fascia and tendon of lower back, initial encounter Disposition: HOME / SELF CARE / HOMELESS Is pt being admited?: No Does the pt Need Aspirin: No Condition: Stable Instructions: Muscle Cramps and Spasms, [id number], Lumbosacral Strain, Low Back Sprain or Strain Rehab-SportsMed Additional Instructions: Your symptoms are likely musculoskeletal following a new physical exercise routine that you began a few days ago. This is normal when you start working out from a previous stationary lifestyle. Therefore take medication with food, drink plenty of fluids and follow-up with your primary care physician in 7 to 10 days for reevaluation. Return to the ED immediately if symptoms get worse. Prescriptions: Naproxen 500 mg PO Q12H PRN #30 tab PRN Reason: Pain , Severe (7-10) methOCARBAMOL [Robaxin TAB] 750 mg PO Q12H PRN #24 tab PRN Reason: Muscle Spasm Referrals: [facility] [Provider Group] - 3-5 Days Time of Disposition: 12:42 Print Language: GUATEMALAN
== END 2021-11-06 14:16 | disposition home or self-care (01) ==
LOC: ED 10:08
DX: S39.012A Strain of muscle, fascia and tendon of lower back, initial encounter (principal); S29.012A Strain of muscle and tendon of back wall of thorax, initial encounter; M62.830 Muscle spasm of back; G89.29 Other chronic pain; I10 Essential (primary) hypertension; F12.90 Cannabis use, unspecified, uncomplicated; Z79.899 Other long term (current) drug therapy; X50.1XXA Overexertion from prolonged static or awkward postures, initial encounter; X50.0XXA Overexertion from strenuous movement or load, initial encounter; Y93.89 Activity, other specified; Y92.89 Other specified places as the place of occurrence of the external cause; Y99.8 Other external cause status
CPT/HCPCS: 99282

== ENCOUNTER 2021-11-23 18:38 | Emergency (ER) | payer SELFPAY ==
[2021-11-23 20:53] LABS: Alanine Aminotransferase 15 units/L (7-56); Albumin 4.4 g/dL (3.9-5); BUN/Creatinine Ratio 14; Blood Urea Nitrogen 15 mg/dL (9-20); Calcium 9.3 mg/dL (8.4-10.2); Hemolysis Index 32
--- NOTE | 2021-11-23 20:59 | XRay Report ---
CHEST 2 VIEWS INDICATION / CLINICAL INFORMATION: CHEST PAIN. COMPARISON: 10/10/2020 FINDINGS: SUPPORT DEVICES: None. HEART / MEDIASTINUM: No significant abnormality. LUNGS / PLEURA: No significant pulmonary or pleural abnormality. No pneumothorax. ADDITIONAL FINDINGS: No significant additional findings. IMPRESSION: 1. No acute findings. Signer Name: Jose Marcus MD Signed: 11/23/2021 8:55 PM Workstation Name: [id number]
[2021-11-23 21:17] LABS: Hematocrit 43.6 % (35.5-45.6); Hemoglobin 14.2 gm/dl (11.8-15.2); Mean Corpuscular HGB Conc 33 % (32-34); Mean Corpuscular Volume 84 fl (84-94); Platelet Count 251 K/mm3 (140-440); Red Blood Count 5.22 M/mm3 (3.65-5.03); Red Cell Distribution Width 15.3 % (13.2-15.2)
[2021-11-23] MEDS ORDERED: IBUPROFEN 400 MG TAB PO ONE (23:26)
[2021-11-23] MEDS ORDERED: ACETAMINOPHEN 325 MG TAB PO ONE (23:26)
--- NOTE | 2021-11-23 23:27 | Emergency Department Report ---
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 He also describes a sensation of heart racing when he wakes up from sleep. The patient denies travel, surgery, immobilization, DVT/PE risk factors. The patient denies vomiting, diaphoresis and exertional shortness of breath. The patient denies headache, midline neck pain, exertional chest pain, abdominal pain, nausea, vomiting, diarrhea, testicular pain or urinary symptoms. He does occasionally endorse decreased libido and decreased erectile functionality. He sleeps at home by himself and does not currently have a bed partner. He believes he snores quite a bit at night, and reports that sleep is not restful. He thinks he sleeps for perhaps 3 to 4 hours each evening. He also reports that he will typically fall asleep while watching TV or the computer. His palpitations and heart racing are now resolved. He feels like he is back to his baseline. Reports no significant family history for DVT/PE/ACS. -: days(s) Location: neck, chest, left Radiation: non-radiation Consistency: now resolved Improves with: none Worsens with: none Associated Symptoms: denies other symptoms - Related Data Home Medications Medication Instructions Recorded Confirmed Last Taken amLODIPine [Norvasc] 5 mg PO DAILY 10/10/20 10/10/20 Unknown Previous Rx's Medication Instructions Recorded Last Taken Type Potassium Chloride [K-Dur] 20 meq PO DAILY 30 Days #30 tab 10/10/20 Unknown Rx Ibuprofen [Motrin] 800 mg PO Q8HR PRN #30 tablet 12/15/20 Unknown Rx Lidocaine Viscous 2% 10 ml PO Q6H PRN #120 ml 12/15/20 Unknown Rx traMADoL [Ultram] 50 mg PO Q6HR PRN #10 tablet 08/19/21 Unknown Rx Acetaminophen/Chlorpheniramine 1 each PO QID PRN #30 tab 09/12/21 Unknown Rx [Coricidin Hbp Cold & Flu Tab] Azithromycin [Zithromax Z-EDIS] 250 mg PO DAILY #6 tablet 09/12/21 Unknown Rx Fluticasone Furoate [Flonase 1 spray NS BID #1 unit 09/12/21 Unknown Rx Sensimist] Naproxen 500 mg PO Q12H PRN #30 tab 11/06/21 Unknown Rx methOCARBAMOL [Robaxin TAB] 750 mg PO Q12H PRN #24 tab 11/06/21 Unknown Rx Allergies Allergy/AdvReac Type Severity Reaction Status Date / Time No Known Allergies Allergy Verified 11/04/21 13:13 ED Review of Systems ROS: Stated complaint: HEART RACING/DIZZY/PRESSUE BACK Other details as noted in HPI Constitutional: denies: fever Eyes: denies: eye discharge ENT: denies: epistaxis Respiratory: denies: cough, wheezing Cardiovascular: palpitations, other (Anterior chest wall tightness) Gastrointestinal: denies: abdominal pain, nausea, vomiting, hematemesis, melena, hematochezia Genitourinary: as per HPI. denies: dysuria Musculoskeletal: myalgia Neurological: denies: weakness Hematological/Lymphatic: denies: easy bleeding ED Past Medical Hx - Past Medical History Hx Hypertension: Yes Additional medical history: Chronic low back pain; chronic neck pain - Social History Smoking Status: Never Smoker Substance Use Type: Marijuana - Medications Home Medications: Home Medications Medication Instructions Recorded Confirmed Last Taken Type Potassium Chloride [K-Dur] 20 meq PO DAILY 30 Days #30 tab 10/10/20 Unknown Rx amLODIPine [Norvasc] 5 mg PO DAILY 10/10/20 10/10/20 Unknown History Ibuprofen [Motrin] 800 mg PO Q8HR PRN #30 tablet 12/15/20 Unknown Rx Lidocaine Viscous 2% 10 ml PO Q6H PRN #120 ml 12/15/20 Unknown Rx traMADoL [Ultram] 50 mg PO Q6HR PRN #10 tablet 08/19/21 Unknown Rx Acetaminophen/Chlorpheniramine 1 each PO QID PRN #30 tab 09/12/21 Unknown Rx [Coricidin Hbp Cold & Flu Tab] Azithromycin [Zithromax Z-EDIS] 250 mg PO DAILY #6 tablet 09/12/21 Unknown Rx Fluticasone Furoate [Flonase 1 spray NS BID #1 unit 09/12/21 Unknown Rx Sensimist] Naproxen 500 mg PO Q12H PRN #30 tab 11/06/21 Unknown Rx methOCARBAMOL [Robaxin TAB] 750 mg PO Q12H PRN #24 tab 11/06/21 Unknown Rx ED Physical Exam - General Limitations: No Limitations General appearance: alert, in no apparent distress, obese - Head Head exam: Present: atraumatic, normocephalic - Eye Eye exam: Present: normal appearance, EOMI. Absent: nystagmus - ENT ENT exam: Present: normal exam, normal orophraynx, mucous membranes moist, normal external ear exam - Neck Neck exam: Present: normal inspection, tenderness (There is reproducible left posterior trapezius and paracervical muscular tenderness), full ROM. Absent: meningismus - Respiratory Respiratory exam: Present: normal lung sounds bilaterally. Absent: respiratory distress, wheezes, rales, rhonchi, stridor, decreased breath sounds - Cardiovascular Cardiovascular Exam: Present: regular rate, normal rhythm, normal heart sounds. Absent: bradycardia, tachycardia, irregular rhythm, systolic murmur, diastolic murmur, rubs, gallop - GI/Abdominal GI/Abdominal exam: Present: soft. Absent: distended, tenderness, guarding, rebound, rigid, pulsatile mass - Rectal Rectal exam: Present: deferred - Extremities Exam Extremities exam: Present: normal inspection, full ROM, other (2+ pulses noted in the bilateral upper and lower extremities. There is no palpable cord. negative Homans sign. Muscular compartments are soft. The pelvis is stable.). Absent: pedal edema, calf tenderness - Back Exam Back exam: Present: normal inspection, muscle spasm, paraspinal tenderness. Absent: tenderness, CVA tenderness (R), CVA tenderness (L), vertebral tenderness - Neurological Exam Neurological exam: Present: alert, oriented X3, normal gait, other (No facial droop. Tongue midline. Extraocular movements intact bilaterally. Facial sens ation intact to light touch in V1, V2, V3 distribution bilaterally. 5 and a 5 strength in 4 extremities. Sensation intact to light touch in 4 extremities.). Absent: motor sensory deficit - Psychiatric Psychiatric exam: Present: normal affect, normal mood - Skin Skin exam: Present: warm, dry, intact, normal color. Absent: rash ED Course Vital Signs 11/23/21 19:00 Temperature 98.6 F Pulse Rate 100 H Respiratory 18 Rate Blood Pressure 173/91 O2 Sat by Pulse 95 Oximetry - Reevaluation(s) Reevaluation #1: 11/23/21 23:59 At the time of discharge, heart rate 85 bpm - Pulse Oximetry Interpretation Digit-Finger Initial Pulse Oximetry Readin Actions Taken: none ED Medical Decision Making - Lab Data Result diagrams: 11/23/21 20:09 11/23/21 20:09 Vital Signs 11/23/21 19:00 Temperature 98.6 F Pulse Rate 100 H Respiratory 18 Rate Blood Pressure 173/91 O2 Sat by Pulse 95 Oximetry Lab Results 11/23/21 11/23/21 Range/Units 20:09 20:09 WBC 6.8 (4.5-11.0) K/mm3 RBC 5.22 H (3.65-5.03) M/mm3 Hgb 14.2 (11.8-15.2) gm/dl Hct 43.6 (35.5-45.6) % MCV 84 (84-94) fl MCH 27 L (28-32) pg MCHC 33 (32-34) % RDW 15.3 H (13.2-15.2) % Plt Count 251 (140-440) K/mm3 Lymph % (Auto) Leasing Director [place] % (Auto) Leasing Director Eos % (Auto) Leasing Director Baso % (Auto) Leasing Director Lymph # (Auto) Leasing Director [place] # (Auto) Leasing Director Eos # (Auto) Leasing Director Baso # (Auto) Leasing Director Seg Neutrophils % Leasing Director Seg Neutrophils # Leasing Director Sodium 137 (137-145) mmol/L Potassium 3.5 L (3.6-5.0) mmol/L Chloride 100.2 (98-107) mmol/L Carbon Dioxide 23 (22-30) mmol/L Anion Gap 17 mmol/L BUN 15 (9-20) mg/dL Creatinine 1.1 (0.8-1.3) mg/dL Estimated GFR > 60 ml/min BUN/Creatinine Ratio 14 % Glucose 111 H (75-100) mg/dL Calcium 9.3 (8.4-10.2) mg/dL Total Bilirubin 0.70 (0.1-1.2) mg/dL AST 16 (5-40) units/L ALT 15 (7-56) units/L Alkaline Phosphatase 62 (35-129) units/L Troponin T < 0.010 (0.00-0.029) ng/mL Total Protein 7.7 (6.3-8.2) g/dL Albumin 4.4 (3.9-5) g/dL Albumin/Globulin Ratio 1.3 % - EKG Data -: EKG Interpreted by Nm EKG shows normal: sinus rhythm Rate: normal - EKG Data Interpretation: unchanged when compared t 11/23/21 23:51 The EKG is interpreted at 18: 53 shows a sinus rhythm, 96 bpm. Normal axis, normal P wave axis, QTC 4 4 4 ms, motion artifact, appears unchanged from prior EKG from July 2021 - Radiology Data Radiology results: pending, report reviewed, image reviewed CHEST 2 VIEWS INDICATION / CLINICAL INFORMATION: CHEST PAIN. COMPARISON: 10/10/2020 FINDINGS: SUPPORT DEVICES: None. HEART / MEDIASTINUM: No significant abnormality. LUNGS / PLEURA: No significant pulmonary or pleural abnormality. No pneumothorax. ADDITIONAL FINDINGS: No significant additional findings. IMPRESSION: 1. No acute findings. Signer Name: Jose Marcus MD Signed: 2021 7:55 PM - Medical Decision Making Differential diagnosis, including but not limited to: Cervical radiculopathy, obstructive sleep apnea, muscle spasm, coronary artery disease, pneumonia, pneumothorax Assessment and plan: 51-year-old gentleman, who is not currently tachycardic, tachypneic or hypoxic, heart rate 85 bpm, saturating at 99% on room air who denies DVT and pulmonary embolism risk factors, who is low risk by Wells criteria for pulmonary embolism, EKG unchanged from prior, troponin negative x1 in the context of days of symptoms. Acute myocardial infarction is ruled out Patient has equal pulses in the upper and lower extremities, no pulsatile abdomi nal mass, and an unremarkable x-ray of the chest, therefore, aortic disease is very unlikely. Do not clinically suspect pneumonia or pneumothorax. Chest x-ray is clear Patient at low risk for major adverse cardiac event as per heart score. I suspect that this patient has undiagnosed obstructive sleep apnea, with a probable contributory component of muscle spasm, and cervical radiculopathy. He has appropriate strength, sensation. Upon evaluation, he is noted to be talking on his cell phone, and in no acute distress. Extensive discussion had with patient regarding need to diet, exercise, lose weight, and follow-up with an outpatient primary care doctor, pulmonology/sleep specialist or pcts for definitive testing for presumed obstructive sleep apnea. Patient has chronic hypertension and takes clonidine, please reference the [employer] clinical policy on asymptomatic hypertension. Blood pressure should be improved with initiation of CPAP therapy, diet, exercise and weight loss, for probable obstructive sleep apnea. Critical care attestation.: If time is entered above; I have spent that time in minutes in the direct care of this critically ill patient, excluding procedure time. ED Disposition Clinical Impression: Nonspecific chest pain, Elevated blood pressure reading, Left arm pain, Body mass index exceeds 40 Disposition: 01 HOME / SELF CARE / HOMELESS Is pt being admited?: No Does the pt Need Aspirin: No Condition: Good Instructions: Sleep Apnea, Sleep Studies, Nonspecific Chest Pain, Adult Additional Instructions: As we discussed, patient most likely has undiagnosed obstructive sleep apnea. First-line treatment for obstructive sleep apnea is aggressive weight loss, diet and exercise. As we discussed, please make an effort to consume foods that are "green and lean." This means plenty of fiber, vegetables, lean protein, avoidance of carbohydrates, sugar, alcohol, tobacco and smoke products. The patient is encouraged to closely follow-up with an outpatient primary care doctor, sleep specialist or pcts within the next week for outpatient testing to evaluate for obstructive sleep apnea. [facility] is a local primary care clinic. [place] [facility], [facility] are local cardiology practices. Dr. Avina is a local pulmonology specialist who can arrange for definitive outpatient sleep testing as well. Elevated blood pressure likely secondary to body mass index of 43.5, and undiagnosed obstructive sleep apnea. Patient may take [id number] Tylenol, or ibuprofen as needed for physical pain. Please return to the emergency room right away with new pain, worsened pain, migration of pain, projectile vomiting, change in mental status, confusion, inability tolerate liquid feeds, new, worsened or different symptoms not present on the initial emergency room evaluation Referrals: [facility] [Provider Group] - 3-5 Days [facility] [Provider Group[facility] - 3-5 Days [facility] [Provider Group] - 3-5 Days JAC AVINA MD [Staff Physician] - 3-5 Days Forms: Work/School Release Form(ED) Heart Score - HEART Score History: Slightly suspicious EKG: Non-specific Age: 45-65 Risk factors: 1-2 risk factors Troponin: < normal limit HEART Score: 3 - EKG Read Time Time EKG Completed: 18:53 EKG Read Time: 18:53 - Critical Actions Critical Actions: 0-3 pts:0.9-1.7%risk of adverse cardiac event.Candidate for discharge
[2021-11-24 00:52] VITALS: BP 172/90
--- NOTE | 2021-11-24 11:23 | Electrocardiograph Report ---
[facility] Test Date: 2021-11-23 Test Time: 18:53:17 Pat Name: JARETH SALINAS Department: Room: Gender: M Independent Video Producer: JIMENEZ : 1970 Requested By: BRENTON MENESES Order Number: [id number] Reading MD: Farzad Shelton Measurements Intervals [place] Rate: 96 P: 109 [place]: 168 QRS: 42 QRSD: 87 T: 87 QT: 351 QTc: 444 Interpretive Statements Sinus rhythm Probable left atrial enlargement Compared to ECG 08/03/2021 04:06:47 No significant changes Electronically Signed On 11-24-2021 11:22:37 EDT by Farzad Shelton
== END 2021-11-24 00:51 | disposition home or self-care (01) ==
LOC: ED 18:38
DX: R07.89 Other chest pain (principal); R03.0 Elevated blood-pressure reading, without diagnosis of hypertension; M79.602 Pain in left arm; I10 Essential (primary) hypertension; G89.29 Other chronic pain; F12.90 Cannabis use, unspecified, uncomplicated; Z79.899 Other long term (current) drug therapy
CPT/HCPCS: 36415; 71046; 80053; 84484; 85025; 93005; 99284

== ENCOUNTER 2021-12-25 05:52 | Emergency (ER) | payer SELFPAY ==
[2021-12-25 07:00] VITALS: BP 180/108
--- NOTE | 2021-12-25 15:14 | Emergency Department Report ---
ED General Adult HPI - General Chief complaint: Earache Stated complaint: BILATERAL EARACHE Source: patient Mode of arrival: Ambulatory Limitations: No Limitations - History of Present Illness Initial comments: Patient is a 51-year-old -[place] male with a history of hypertension, chronic low back pain and neck pain who presents to the ED with complaint of persistent bilateral ear pain for the last 1 week. Patient states that he was initially evaluated at another hospital and has been taking prescribed oral antibiotics, Augmentin twice a day for the last 5 days. Patient also states that he has been taking Tylenol with codeine for pain with no relief. Patient denies dizziness, syncope, headache, nausea and vomiting, chest pain or shortness of breath, hearing loss, sore throat, nasal and sinus congestion, traumatic injury or cough. MD Complaint: Bilateral ear pain -: Sudden, week(s) (1) Location: face (Bilateral ears) Radiation: non-radiation Severity scale (0 -10): 7 Quality: aching, sharp Consistency: constant Improves with: none Worsens with: none Associated Symptoms: denies other symptoms, other (Bilateral ear pain). denies: confusion, chest pain, cough, diaphoresis, fever/chills, headaches, loss of appetite, malaise, nausea/vomiting, rash, seizure, shortness of breath, syncope, weakness Treatments Prior to Arrival: none - Related Data Home Medications Medication Instructions Recorded Confirmed Last Taken amLODIPine [Norvasc] 5 mg PO DAILY 10/10/20 10/10/20 Unknown Previous Rx's Medication Instructions Recorded Last Taken Type Potassium Chloride [K-Dur] 20 meq PO DAILY 30 Days #30 tab 10/10/20 Unknown Rx Lidocaine Viscous 2% 10 ml PO Q6H PRN #120 ml 12/15/20 Unknown Rx traMADoL [Ultram] 50 mg PO Q6HR PRN #10 tablet 08/19/21 Unknown Rx Acetaminophen/Chlorpheniramine 1 each PO QID PRN #30 tab 09/12/21 Unknown Rx [Coricidin Hbp Cold & Flu Tab] Azithromycin [Zithromax Z-EDIS] 250 mg PO DAILY #6 tablet 09/12/21 Unknown Rx Fluticasone Furoate [Flonase 1 spray NS BID #1 unit 09/12/21 Unknown Rx Sensimist] Naproxen 500 mg PO Q12H PRN #30 tab 11/06/21 Unknown Rx methOCARBAMOL [Robaxin TAB] 750 mg PO Q12H PRN #24 tab 11/06/21 Unknown Rx Carbamide Peroxide 6.5% [Ear Wax 5 drops OT BID #10 ml 12/25/21 Unknown Rx Drops] Clindamycin [Clindamycin CAP] 300 mg PO Q6H #40 cap 12/25/21 Unknown Rx Ibuprofen [Motrin 800 MG tab] 800 mg PO Q8HR PRN #30 tablet 12/25/21 Unknown Rx Ofloxacin 0.3% [Floxin 0.3% Otic] 2 drop OT BID #10 ml 12/25/21 Unknown Rx Allergies Allergy/AdvReac Type Severity Reaction Status Date / Time No Known Allergies Allergy Verified 11/04/21 13:13 ED Review of Systems ROS: Stated complaint: BILATERAL EARACHE Other details as noted in HPI Constitutional: denies: chills, fever Eyes: denies: eye pain, eye discharge, vision change ENT: ear pain (Bilateral ear pain). denies: throat pain Respiratory: denies: cough, shortness of breath, wheezing Cardiovascular: denies: chest pain, palpitations Endocrine: no symptoms reported Gastrointestinal: denies: abdominal pain, nausea, vomiting, diarrhea Genitourinary: denies: urgency, dysuria Musculoskeletal: denies: back pain, joint swelling, arthralgia Skin: denies: rash, lesions Neurological: denies: headache, weakness, paresthesias Psychiatric: denies: anxiety, depression Hematological/Lymphatic: denies: easy bleeding, easy bruising ED Past Medical Hx - Past Medical History Hx Hypertension: Yes Additional medical history: Chronic low back pain; chronic neck pain - Social History Smoking Status: Never Smoker Substance Use Type: Marijuana - Medications Home Medications: Home Medications Medication Instructions Recorded Confirmed Last Taken Type Potassium Chloride [K-Dur] 20 meq PO DAILY 30 Days #30 tab 10/10/20 Unknown Rx amLODIPine [Norvasc] 5 mg PO DAILY 10/10/20 10/10/20 Unknown History Lidocaine Viscous 2% 10 ml PO Q6H PRN #120 ml 12/15/20 Unknown Rx traMADoL [Ultram] 50 mg PO Q6HR PRN #10 tablet 08/19/21 Unknown Rx Acetaminophen/Chlorpheniramine 1 each PO QID PRN #30 tab 09/12/21 Unknown Rx [Coricidin Hbp Cold & Flu Tab] Azithromycin [Zithromax Z-EDIS] 250 mg PO DAILY #6 tablet 09/12/21 Unknown Rx Fluticasone Furoate [Flonase 1 spray NS BID #1 unit 09/12/21 Unknown Rx Sensimist] Naproxen 500 mg PO Q12H PRN #30 tab 11/06/21 Unknown Rx methOCARBAMOL [Robaxin TAB] 750 mg PO Q12H PRN #24 tab 11/06/21 Unknown Rx Carbamide Peroxide 6.5% [Ear Wax 5 drops OT BID #10 ml 12/25/21 Unknown Rx Drops] Clindamycin [Clindamycin CAP] 300 mg PO Q6H #40 cap 12/25/21 Unknown Rx Ibuprofen [Motrin 800 MG tab] 800 mg PO Q8HR PRN #30 tablet 12/25/21 Unknown Rx Ofloxacin 0.3% [Floxin 0.3% Otic] 2 drop OT BID #10 ml 12/25/21 Unknown Rx ED Physical Exam - General Limitations: No Limitations General appearance: alert, in no apparent distress - Head Head exam: Present: atraumatic, normocephalic, normal inspection - Eye Eye exam: Present: normal appearance, PERRL, EOMI Pupils: Present: normal accommodation - ENT ENT exam: Present: normal orophraynx, mucous membranes moist, other (Complete cerumen impaction bilaterally; mild erythematous bulging bilateral tympanic membranes) - Neck Neck exam: Present: normal inspection, full ROM. Absent: tenderness - Respiratory Respiratory exam: Present: normal lung sounds bilaterally. Absent: respiratory distress, wheezes, rales, rhonchi, stridor, chest wall tenderness, accessory muscle use, decreased breath sounds, other - Cardiovascular Cardiovascular Exam: Present: regular rate, normal rhythm, normal heart sounds. Absent: systolic murmur, diastolic murmur, rubs, gallop - GI/Abdominal GI/Abdominal exam: Present: soft, normal bowel sounds. Absent: tenderness, guarding, rebound, hyperactive bowel sounds, hypoactive bowel sounds, organomegaly - Extremities Exam Extremities exam: Present: normal inspection, full ROM, normal capillary refill. Absent: tenderness - Back Exam Back exam: Present: normal inspection, full ROM. Absent: tenderness, CVA tenderness (R), CVA tenderness (L), muscle spasm, paraspinal tenderness, vertebral tenderness - Neurological Exam Neurological exam: Present: alert, oriented X3, CN II-XII intact, normal gait, reflexes normal - Psychiatric Psychiatric exam: Present: normal affect, normal mood, anxious - Skin Skin exam: Present: warm, dry, intact, normal color. Absent: rash ED Course Vital Signs 12/25/21 06:48 Temperature 99.3 F Pulse Rate 77 Respiratory 18 Rate Blood Pressure 180/108 O2 Sat by Pulse 99 Oximetry ED Medical Decision Making - Medical Decision Making This is a 51-year-old -[place] male with a history of hypertension, chronic low back pain and neck pain who presents to the ED with complaint of persistent bilateral ear pain for the last 1 week. Patient states that he was initially evaluated at another hospital and has been taking prescribed oral antibiotics, Augmentin twice a day for the last 5 days. Patient also states that he has been taking Tylenol with codeine for pain with no relief. In the ED, patient is alert and oriented x3 and is not in any distress. Patient was discharged home on medications based on the history and physical exam findings, and was advised to follow-up with his primary care physician in 7 to 10 days for reevaluation. Patient was advised to return to the ED immediately if symptoms get worse. - Differential Diagnosis Otitis media; cerumen impaction; otalgia; Critical care attestation.: If time is entered above; I have spent that time in minutes in the direct care of this critically ill patient, excluding procedure time. ED Disposition Clinical Impression: Acute otitis media with effusion of both ears, Impacted cerumen of both ears Disposition: HOME / SELF CARE / HOMELESS Is pt being admited?: No Does the pt Need Aspirin: No Condition: Stable Instructions: Ear Drops, Adult, [id number], Otitis Media, Adult, [id number], Earwax Buildup, Adult, Ear Irrigation Additional Instructions: Complete the antibiotics that were previously prescribed. Take medication as needed for pain, apply the cerumen removal solution to your area to declog the earwax bilaterally. Follow-up with your primary care physician in 7 to 10 days for reevaluation. Return to the ED immediately if symptoms get worse. Prescriptions: Clindamycin [Clindamycin CAP] 300 mg PO Q6H #40 cap Carbamide Peroxide 6.5% [Ear Wax Drops] 5 drops OT BID #10 ml Ofloxacin 0.3% [Floxin 0.3% Otic] 2 drop OT BID #10 ml Ibuprofen [Motrin 800 MG tab] 800 mg PO Q8HR PRN #30 tablet PRN Reason: Pain , Severe (7-10) Referrals: [facility] [Provider Group] - 7-10 days Time of Disposition: 15:14 Print Language: [place]
== END 2021-12-25 15:40 | disposition home or self-care (01) ==
LOC: ED 05:52
DX: H65.93 Unspecified nonsuppurative otitis media, bilateral (principal); H61.23 Impacted cerumen, bilateral; I10 Essential (primary) hypertension; F12.90 Cannabis use, unspecified, uncomplicated
CPT/HCPCS: 99282

== ENCOUNTER 2022-01-19 14:05 | Emergency (ER) | payer SELFPAY ==
[2022-01-19 14:41] VITALS: BP 122/74
== END 2022-01-20 03:00 | disposition left against medical advice (07) ==
LOC: ED 14:05
DX: I95.9 Hypotension, unspecified (principal); Z53.21 Procedure and treatment not carried out due to patient leaving prior to being seen by health care provider

== ENCOUNTER → 2022-01-29 | Emergency (ER) | payer SELFPAY ==
[2022-01-29 01:57] VITALS: BP 139/88
== END ==
LOC: ED 01:34
DX: M54.50 Low back pain, unspecified (principal); Z53.21 Procedure and treatment not carried out due to patient leaving prior to being seen by health care provider